=== PATIENT | female | born 1965 | race Caucasian/White ===

== ENCOUNTER 2016-11-04 10:59 | Outpatient (CLI) | payer MEDICAID ==
[2016-11-04 11:42] LABS: BASOPHILS % (AUTO) 0.8 %; EOSINOPHILS # (AUTO) 0.1 10^3/uL (0.0-0.7); EOSINOPHILS % (AUTO) 1.3 %; HCT - HEMATOCRIT 35.9 % (37.0-47.0); HGB - HEMOGLOBIN 12.5 g/dL (12.0-16.0); LYMPHOCYTES # (AUTO) 1.4 10^3/uL (1.5-3.5); LYMPHOCYTES % (AUTO) 28.5 %; MEAN CORPUSCULAR HEMOGLOBIN 31.7 pg (27.0-31.0); MEAN CORPUSCULAR HGB CONC 34.8 g/dL (32.0-36.0); MEAN CORPUSCULAR VOLUME 91.2 fL (81.0-99.0); MEAN PLATELET VOLUME 8.4 fL (7.9-10.8); MONOCYTES # (AUTO) 0.4 10^3/uL (0.0-1.0); MONOCYTES % (AUTO) 8.1 %; NEUTROPHILS # (AUTO) 3.1 10^3/uL (1.5-6.6); NEUTROPHILS % (AUTO) 61.3 %; RED BLOOD COUNT 3.93 10^6/uL (4.20-5.40); RED CELL DISTRIBUTION WIDTH 11.9 % (12.0-15.0)
[2016-11-04 12:18] LABS: FERRITIN 32.3 ng/mL (11.0-306.8)
[2016-11-04 12:31] LABS: THYROID STIMULATING HORMONE 0.27 uIU/mL (0.34-5.60)
[2016-11-04 13:08] LABS: CHOL/HDL RATIO 3.4 (<4.4); CHOLESTEROL 154 mg/dL; HDL CHOLESTEROL 45 mg/dL; LDL/HDL RATIO 2.2 (<4.4); TRIGLYCERIDES 57 mg/dL; VLDL CHOLESTEROL 11 mg/dL
== END 2016-11-04 11:00 | disposition home or self-care (01) ==
LOC: LAB 10:59
PROVIDERS: ATTEND Acupuncturist
DX: Z00.00 Encounter for general adult medical examination without abnormal findings (principal)
CPT/HCPCS: 36415; 80061; 82306; 82728; 84443; 85025

== ENCOUNTER 2017-10-19 14:56 | Outpatient (CLI) | payer MEDICAID ==
[2017-10-19 15:19] LABS: BASOPHILS % (AUTO) 0.4 %; EOSINOPHILS # (AUTO) 0.1 10^3/uL (0.0-0.7); EOSINOPHILS % (AUTO) 1.8 %; HGB - HEMOGLOBIN 12.7 g/dL (12.0-16.0); LYMPHOCYTES # (AUTO) 1.8 10^3/uL (1.5-3.5); LYMPHOCYTES % (AUTO) 28.8 %; MEAN CORPUSCULAR HEMOGLOBIN 32.9 pg (27.0-31.0); MEAN CORPUSCULAR VOLUME 93.9 fL (81.0-99.0); MEAN PLATELET VOLUME 8.3 fL (7.9-10.8); MONOCYTES # (AUTO) 0.4 10^3/uL (0.0-1.0); MONOCYTES % (AUTO) 6.5 %; NEUTROPHILS # (AUTO) 3.9 10^3/uL (1.5-6.6); NEUTROPHILS % (AUTO) 62.5 %; PLT - PLATELET COUNT 269 10^3/uL (130-450); RED BLOOD COUNT 3.87 10^6/uL (4.20-5.40); RED CELL DISTRIBUTION WIDTH 12.1 % (12.0-15.0); WHITE BLOOD COUNT 6.3 x10^3/uL (4.8-10.8)
[2017-10-19 15:32] LABS: ALBUMIN 4.2 g/dL (3.2-5.5); ALBUMIN/GLOBULIN RATIO 1.2 (1.0-2.2); BILIRUBIN,TOTAL 0.6 mg/dL (0.2-1.0); CALCIUM 9.5 mg/dL (8.5-10.3); CREATININE 0.6 mg/dL (0.4-1.0); TOTAL PROTEIN 7.6 g/dL (6.7-8.2)
[2017-10-19 15:50] LABS: THYROID STIMULATING HORMONE 3.33 uIU/mL (0.34-5.60)
[2017-10-19 15:52] LABS: FREE T4 (FREE THYROXINE) 0.78 ng/dL (0.58-1.64)
[2017-10-19 15:55] LABS: FERRITIN 30.7 ng/mL (11.0-306.8)
[2017-10-19 16:17] LABS: BILIRUBIN,URINE NEGATIVE (NEGATIVE); GLUCOSE, URINE (UA) NEGATIVE (NEGATIVE); KETONES,URINE (UA) NEGATIVE (NEGATIVE); LEUKOCYTE ESTERASE, URINE NEGATIVE (NEGATIVE); NITRITE,URINE NEGATIVE (NEGATIVE); OCCULT BLOOD,URINE NEGATIVE (NEGATIVE); PROTEIN,URINE NEGATIVE (NEGATIVE); UROBILINOGEN,URINE 0.2 (NORMAL) E.U./dL (NORMAL)
[2017-10-19 16:19] LABS: CLARITY,URINE CLEAR (CLEAR)
== END 2017-10-19 14:57 | disposition home or self-care (01) ==
LOC: LAB 14:56
PROVIDERS: ATTEND Acupuncturist
DX: Z00.00 Encounter for general adult medical examination without abnormal findings (principal); E03.9 Hypothyroidism, unspecified
CPT/HCPCS: 36415; 80053; 81001; 81003; 82728; 84439; 84443; 84481; 85025; 86376

== ENCOUNTER 2018-02-08 13:00 | Outpatient (CLI) | payer MEDICAID ==
[2018-02-08 13:26] LABS: BASOPHILS % (AUTO) 0.7 %; EOSINOPHILS # (AUTO) 0.1 10^3/uL (0.0-0.7); EOSINOPHILS % (AUTO) 1.4 %; HGB - HEMOGLOBIN 13.1 g/dL (12.0-16.0); LYMPHOCYTES # (AUTO) 1.3 10^3/uL (1.5-3.5); LYMPHOCYTES % (AUTO) 26.1 %; MEAN CORPUSCULAR HEMOGLOBIN 32.8 pg (27.0-31.0); MEAN CORPUSCULAR HGB CONC 35.3 g/dL (32.0-36.0); MEAN CORPUSCULAR VOLUME 92.7 fL (81.0-99.0); MEAN PLATELET VOLUME 7.9 fL (7.9-10.8); MONOCYTES # (AUTO) 0.3 10^3/uL (0.0-1.0); MONOCYTES % (AUTO) 6.8 %; NEUTROPHILS # (AUTO) 3.3 10^3/uL (1.5-6.6); PLT - PLATELET COUNT 281 10^3/uL (130-450); RED CELL DISTRIBUTION WIDTH 12.4 % (12.0-15.0)
[2018-02-08 14:11] LABS: THYROID STIMULATING HORMONE 3.14 uIU/mL (0.34-5.60)
[2018-02-08 14:13] LABS: FREE T4 (FREE THYROXINE) 0.89 ng/dL (0.58-1.64)
[2018-02-08 14:18] LABS: FERRITIN 36.5 ng/mL (11.0-306.8)
== END 2018-02-08 13:01 | disposition home or self-care (01) ==
LOC: LAB 13:00
PROVIDERS: ATTEND Acupuncturist
DX: E03.9 Hypothyroidism, unspecified (principal)
CPT/HCPCS: 36415; 82607; 82728; 82746; 84439; 84443; 84481; 85025

== ENCOUNTER 2018-03-17 12:18 | Outpatient (CLI) | payer MEDICAID | END 2018-03-17 12:19 | disposition home or self-care (01) | LOC: LAB 12:18 | PROVIDERS: ATTEND Acupuncturist | DX: Z01.84 Encounter for antibody response examination (principal) | CPT/HCPCS: 36415; 86765 ==

== ENCOUNTER 2018-05-27 15:14 | Outpatient (CLI) | payer MEDICAID ==
[2018-05-27 15:47] LABS: BASOPHILS % (AUTO) 0.5 %; EOSINOPHILS # (AUTO) 0.1 10^3/uL (0.0-0.7); EOSINOPHILS % (AUTO) 1.8 %; HGB - HEMOGLOBIN 12.3 g/dL (12.0-16.0); LYMPHOCYTES # (AUTO) 1.6 10^3/uL (1.5-3.5); MEAN CORPUSCULAR HEMOGLOBIN 32.6 pg (27.0-31.0); MEAN CORPUSCULAR VOLUME 93.1 fL (81.0-99.0); MEAN PLATELET VOLUME 8.4 fL (7.9-10.8); MONOCYTES # (AUTO) 0.5 10^3/uL (0.0-1.0); MONOCYTES % (AUTO) 6.8 %; NEUTROPHILS # (AUTO) 4.8 10^3/uL (1.5-6.6); NEUTROPHILS % (AUTO) 67.9 %; PLT - PLATELET COUNT 279 10^3/uL (130-450); RED BLOOD COUNT 3.77 10^6/uL (4.20-5.40); RED CELL DISTRIBUTION WIDTH 12.3 % (12.0-15.0)
[2018-05-27 16:08] LABS: THYROID STIMULATING HORMONE 1.2 uIU/mL (0.34-5.60)
[2018-05-27 16:13] LABS: FERRITIN 37.6 ng/mL (11.0-306.8)
== END 2018-05-27 15:15 | disposition home or self-care (01) ==
LOC: LAB 15:14
PROVIDERS: ATTEND Acupuncturist
DX: E03.9 Hypothyroidism, unspecified (principal)
CPT/HCPCS: 36415; 82728; 84443; 84481; 85025

== ENCOUNTER 2018-11-19 06:33 | Outpatient (CLI) | payer MEDICAID ==
[2018-11-19 07:06] LABS: BASOPHILS % (AUTO) 0.7 %; EOSINOPHILS # (AUTO) 0.2 10^3/uL (0.0-0.7); EOSINOPHILS % (AUTO) 3.9 %; HGB - HEMOGLOBIN 12.9 g/dL (12.0-16.0); LYMPHOCYTES # (AUTO) 1.9 10^3/uL (1.5-3.5); MEAN CORPUSCULAR HEMOGLOBIN 32.2 pg (27.0-31.0); MEAN CORPUSCULAR HGB CONC 33.9 g/dL (32.0-36.0); MEAN CORPUSCULAR VOLUME 94.8 fL (81.0-99.0); MEAN PLATELET VOLUME 9.7 fL (7.9-10.8); MONOCYTES # (AUTO) 0.5 10^3/uL (0.0-1.0); MONOCYTES % (AUTO) 9.4 %; NEUTROPHILS # (AUTO) 2.7 10^3/uL (1.5-6.6); NEUTROPHILS % (AUTO) 50.6 %; PLT - PLATELET COUNT 281 10^3/uL (130-450); RED BLOOD COUNT 4.01 10^6/uL (4.20-5.40); RED CELL DISTRIBUTION WIDTH 11.6 % (12.0-15.0); WHITE BLOOD COUNT 5.3 x10^3/uL (4.8-10.8)
[2018-11-19 07:33] LABS: ALBUMIN 4.3 g/dL (3.2-5.5); ALBUMIN/GLOBULIN RATIO 1.5 (1.0-2.2); ALKALINE PHOSPHATASE 38 IU/L (42-121); ALT ALANINE AMINOTRANSFERASE 18 IU/L (10-60); AST ASPARTATE AMINOTRANSFERASE 17 IU/L (10-42); BILIRUBIN,TOTAL 0.4 mg/dL (0.2-1.0); BUN - BLOOD UREA NITROGEN 15 mg/dL (6-20); CARBON DIOXIDE - CO2 25 mmol/L (21-32); CHLORIDE 104 mmol/L (101-111); CHOLESTEROL 166 mg/dL; CREATININE 0.5 mg/dL (0.4-1.0); GFR - MDRD 130 (>89); GLUCOSE 102 mg/dL (70-100); HDL CHOLESTEROL 55 mg/dL; LDL CHOLESTEROL,CALCULATED 96 mg/dL; LDL/HDL RATIO 1.7 (<4.4); SODIUM 139 mmol/L (135-145); TOTAL PROTEIN 7.2 g/dL (6.7-8.2); VLDL CHOLESTEROL 15 mg/dL
[2018-11-19 07:46] LABS: THYROID STIMULATING HORMONE 1.11 uIU/mL (0.34-5.60)
[2018-11-19 07:48] LABS: FREE T4 (FREE THYROXINE) 0.65 ng/dL (0.58-1.64)
== END 2018-11-19 06:34 | disposition home or self-care (01) ==
LOC: LAB 06:33
PROVIDERS: ATTEND Acupuncturist
DX: E03.9 Hypothyroidism, unspecified (principal)
CPT/HCPCS: 36415; 80053; 80061; 82728; 83721; 84439; 84443; 84481; 85025; 86376

== ENCOUNTER 2019-09-13 14:09 | Outpatient (CLI) | payer MEDICAID ==
[2019-09-13 14:28] LABS: BASOPHILS % (AUTO) 0.9 %; EOSINOPHILS # (AUTO) 0.1 10^3/uL (0.0-0.7); EOSINOPHILS % (AUTO) 1.4 %; LYMPHOCYTES # (AUTO) 1.1 10^3/uL (1.5-3.5); MEAN CORPUSCULAR HEMOGLOBIN 31.5 pg (27.0-31.0); MEAN CORPUSCULAR HGB CONC 34.5 g/dL (32.0-36.0); MEAN CORPUSCULAR VOLUME 91.3 fL (81.0-99.0); MEAN PLATELET VOLUME 9.2 fL (7.9-10.8); MONOCYTES # (AUTO) 0.7 10^3/uL (0.0-1.0); MONOCYTES % (AUTO) 16.2 %; NEUTROPHILS # (AUTO) 2.4 10^3/uL (1.5-6.6); NEUTROPHILS % (AUTO) 55.3 %; PLT - PLATELET COUNT 240 10^3/uL (130-450); RED BLOOD COUNT 3.81 10^6/uL (4.20-5.40); RED CELL DISTRIBUTION WIDTH 11.9 % (12.0-15.0); WHITE BLOOD COUNT 4.4 x10^3/uL (4.8-10.8)
[2019-09-13 14:44] LABS: ALBUMIN 4.2 g/dL (3.2-5.5); ALBUMIN/GLOBULIN RATIO 1.4 (1.0-2.2); ALKALINE PHOSPHATASE 40 IU/L (42-121); ALT ALANINE AMINOTRANSFERASE 24 IU/L (10-60); AST ASPARTATE AMINOTRANSFERASE 24 IU/L (10-42); BILIRUBIN,TOTAL 0.7 mg/dL (0.2-1.0); BUN - BLOOD UREA NITROGEN 10 mg/dL (6-20); CALCIUM 9.2 mg/dL (8.5-10.3); CARBON DIOXIDE - CO2 26 mmol/L (21-32); CHLORIDE 100 mmol/L (101-111); CHOL/HDL RATIO 3.3 (<4.4); CHOLESTEROL 146 mg/dL; CREATININE 0.6 mg/dL (0.4-1.0); GLUCOSE 99 mg/dL (70-100); HDL CHOLESTEROL 44 mg/dL; LDL CHOLESTEROL,CALCULATED 84 mg/dL; LDL/HDL RATIO 1.9 (<4.4); SODIUM 134 mmol/L (135-145); TOTAL PROTEIN 7.1 g/dL (6.7-8.2); VLDL CHOLESTEROL 18 mg/dL
[2019-09-13 14:52] LABS: HB2 TOTAL 13.1 g/dL; HEMOGLOBIN A1C 0.41 g/dL
[2019-09-13 14:56] LABS: THYROID STIMULATING HORMONE 0.3 uIU/mL (0.34-5.60)
[2019-09-13 15:00] LABS: FREE T3 3.26 pg/mL (2.5-3.9)
[2019-09-13 15:03] LABS: TOTAL T3 1.02 ng/mL (0.87-1.78)
[2019-09-13 15:05] LABS: FERRITIN 97.2 ng/mL (11.0-306.8)
== END 2019-09-13 14:10 | disposition home or self-care (01) ==
LOC: LAB 14:09
PROVIDERS: ATTEND Acupuncturist
DX: Z00.00 Encounter for general adult medical examination without abnormal findings (principal)
CPT/HCPCS: 36415; 80053; 80061; 82607; 82670; 82728; 82746; 83036; 83721; 84443; 84480; 84481; 85025; 86376

== ENCOUNTER 2020-03-30 16:16 | Outpatient (CLI) | payer MEDICAID ==
[2020-03-30 16:48] LABS: BASOPHILS % (AUTO) 0.5 %; EOSINOPHILS # (AUTO) 0.1 10^3/uL (0.0-0.7); EOSINOPHILS % (AUTO) 1.7 %; HGB - HEMOGLOBIN 12.6 g/dL (12.0-16.0); LYMPHOCYTES # (AUTO) 1.7 10^3/uL (1.5-3.5); LYMPHOCYTES % (AUTO) 25.3 %; MEAN CORPUSCULAR HEMOGLOBIN 31.5 pg (27.0-31.0); MEAN CORPUSCULAR HGB CONC 33.4 g/dL (32.0-36.0); MEAN CORPUSCULAR VOLUME 94.3 fL (81.0-99.0); MEAN PLATELET VOLUME 9.5 fL (7.9-10.8); MONOCYTES # (AUTO) 0.5 10^3/uL (0.0-1.0); MONOCYTES % (AUTO) 7.2 %; NEUTROPHILS # (AUTO) 4.2 10^3/uL (1.5-6.6); NEUTROPHILS % (AUTO) 65.1 %; PLT - PLATELET COUNT 297 10^3/uL (130-450); RED CELL DISTRIBUTION WIDTH 11.6 % (12.0-15.0); WHITE BLOOD COUNT 6.5 x10^3/uL (4.8-10.8)
[2020-03-30 16:53] LABS: CALCIUM 9.2 mg/dL (8.5-10.3); CREATININE 0.5 mg/dL (0.4-1.0)
[2020-03-30 17:15] LABS: THYROID STIMULATING HORMONE 0.57 uIU/mL (0.34-5.60)
[2020-03-30 17:17] LABS: FREE T3 3.07 pg/mL (2.5-3.9); FREE T4 (FREE THYROXINE) 0.84 ng/dL (0.58-1.64)
[2020-03-31 05:52] LABS: ESTRADIOL 63 pg/mL
== END 2020-03-30 16:17 | disposition home or self-care (01) ==
LOC: LAB 16:16
PROVIDERS: ATTEND Acupuncturist
DX: E03.9 Hypothyroidism, unspecified (principal); M53.83 Other specified dorsopathies, cervicothoracic region; N92.6 Irregular menstruation, unspecified
CPT/HCPCS: 36415; 80048; 81599; 82626; 82670; 84402; 84439; 84443; 84481; 85025

== ENCOUNTER 2022-09-23 13:44 | Outpatient (CLI) | payer OTHER ==
[2022-09-23 14:01] LABS: BASOPHILS % (AUTO) 0.6 %; EOSINOPHILS # (AUTO) 0.1 10^3/uL (0.0-0.7); EOSINOPHILS % (AUTO) 1.4 %; HCT - HEMATOCRIT 38.7 % (37.0-47.0); LYMPHOCYTES # (AUTO) 1.6 10^3/uL (1.5-3.5); LYMPHOCYTES % (AUTO) 24.2 %; MEAN CORPUSCULAR HEMOGLOBIN 30.3 pg (27.0-31.0); MEAN CORPUSCULAR HGB CONC 33.6 g/dL (32.0-36.0); MEAN CORPUSCULAR VOLUME 90.2 fL (81.0-99.0); MEAN PLATELET VOLUME 9.6 fL (7.9-10.8); MONOCYTES # (AUTO) 0.5 10^3/uL (0.0-1.0); MONOCYTES % (AUTO) 7.3 %; NEUTROPHILS # (AUTO) 4.4 10^3/uL (1.5-6.6); NEUTROPHILS % (AUTO) 66.3 %; PLT - PLATELET COUNT 324 10^3/uL (130-450); RED BLOOD COUNT 4.29 10^6/uL (4.20-5.40); RED CELL DISTRIBUTION WIDTH 12.1 % (12.0-15.0); WHITE BLOOD COUNT 6.6 x10^3/uL (4.8-10.8)
[2022-09-23 14:31] LABS: THYROID STIMULATING HORMONE 2.3 uIU/mL (0.34-5.60)
[2022-09-23 14:33] LABS: % IRON SATURATION 29 % (20-50); ALBUMIN 3.9 g/dL (3.2-5.5); ALBUMIN/GLOBULIN RATIO 1.1 (1.0-2.2); ALKALINE PHOSPHATASE 35 IU/L (42-121); ALT ALANINE AMINOTRANSFERASE 19 IU/L (10-60); AST ASPARTATE AMINOTRANSFERASE 18 IU/L (10-42); BILIRUBIN,TOTAL 0.5 mg/dL (0.2-1.0); BUN - BLOOD UREA NITROGEN 15 mg/dL (6-20); CARBON DIOXIDE - CO2 27 mmol/L (21-32); CHLORIDE 102 mmol/L (101-111); CHOL/HDL RATIO 3.3 (<4.4); CHOLESTEROL 184 mg/dL; CREATININE 0.6 mg/dL (0.4-1.0); GFR - MDRD 104 (>89); GLUCOSE 110 mg/dL (70-100); HDL CHOLESTEROL 55 mg/dL; IRON 103 ug/dL (28-170); LDL CHOLESTEROL,CALCULATED 117 mg/dL; LDL/HDL RATIO 2.1 (<4.4); POTASSIUM 4.1 mmol/L (3.5-5.0); SODIUM 136 mmol/L (135-145); TOTAL IRON BINDING CAPACITY 356 ug/dL (250-450); TOTAL PROTEIN 7.6 g/dL (6.7-8.2); TRANSFERRIN 254 mg/dL (192-382); TRIGLYCERIDES 60 mg/dL; VLDL CHOLESTEROL 12 mg/dL
[2022-09-23 14:38] LABS: FERRITIN 72.6 ng/mL (11.0-306.8)
[2022-09-23 15:57] LABS: FOLATE 18.03 ng/mL (5.90 - >24.8)
== END 2022-09-23 13:45 | disposition home or self-care (01) ==
LOC: LAB 13:44
PROVIDERS: ATTEND Acupuncturist
DX: Z00.00 Encounter for general adult medical examination without abnormal findings (principal)
CPT/HCPCS: 36415; 80053; 80061; 82607; 82670; 82728; 82746; 83540; 83721; 84443; 84466; 85025